=== PATIENT | male | born 1985 | race Caucasian/White ===

== ENCOUNTER 2023-02-02 17:29 | Emergency (ER) | payer SELFPAY ==
[2023-02-02] MEDS ORDERED: Tetracaine 0.5% PF 4 ML BOT ONE (17:42)
[2023-02-02] MEDS ORDERED: Fluorescein Opthalmic Strip ONE (17:42)
== END 2023-02-02 18:27 | disposition home or self-care (01) ==
LOC: MADERS 17:29
DX: T15.02XA Foreign body in cornea, left eye, initial encounter (principal); K21.9 Gastro-esophageal reflux disease without esophagitis; F17.210 Nicotine dependence, cigarettes, uncomplicated; X58.XXXA Exposure to other specified factors, initial encounter
CPT/HCPCS: 65220